=== PATIENT | male | born 1985 | race Caucasian/White ===

== ENCOUNTER 2024-02-08 08:26 | Outpatient (CLI) | payer OTHER, SELFPAY ==
--- NOTE | 2024-02-08 09:45 | W.ANESCHARGE ---
Anesthesia Charges Start Date/Time Anesthesia Start Date: 02/08/24 Anesthesia Start Time: 09:22 Stop Date/Time Anesthesia Stop Date: 02/08/24 Anesthesia Stop Time: 09:42
--- NOTE | 2024-02-08 10:08 | W.ANESCHARGE ---
Anesthesia Charges Start Date/Time Anesthesia Start Date: 02/08/24 Anesthesia Start Time: 09:22 Stop Date/Time Anesthesia Stop Date: 02/08/24 Anesthesia Stop Time: 09:42
== END 2024-02-08 08:27 | disposition home or self-care (01) ==
LOC: OP CLINIC 08:26
PROVIDERS: PCP Nurse Practitioner Family; Visit Provider Surgery
DX: R10.13 Epigastric pain (principal); K21.9 Gastro-esophageal reflux disease without esophagitis; K22.10 Ulcer of esophagus without bleeding; K44.9 Diaphragmatic hernia without obstruction or gangrene
CPT/HCPCS: 00731; 43239; 88305; J2704; J3010

== ENCOUNTER 2024-05-30 12:33 | Outpatient (CLI) | payer OTHER, SELFPAY | END 2024-05-30 12:34 | disposition home or self-care (01) | PROVIDERS: PCP Nurse Practitioner Family; Visit Provider Nurse Practitioner Family | DX: E78.00 Pure hypercholesterolemia, unspecified (principal) | CPT/HCPCS: 80061; 80076; 83695 ==

== ENCOUNTER 2024-08-04 08:08 | Outpatient (CLI) | payer OTHER, SELFPAY ==
--- NOTE | 2024-08-04 08:15 | CRLHL7_ITS ---
For Patients: As a result of the Cures Act, medical imaging exams and procedure reports are released immediately into your electronic medical record. You may view this report before your referring provider. If you have questions, please contact your health care provider. Indication: Cervicalgia. Technique: Multiplanar multisequence noncontrast MR images of the cervical spine. Comparison: Cervical spine radiographs 07/29/2024. Findings: Straightening of the cervical lordosis. No acute fracture or spondylolisthesis. No T1 hypointense lesions or marrow edema. The cervical cord is normal in signal intensity. C2-3: No spinal canal or neural foraminal narrowing. C3-4: No spinal canal or neural foraminal narrowing. C4-5: Shallow posterior disc osteophyte complex. Uncinate spurring. Mild spinal canal narrowing. Mild right without left neural foraminal narrowing. C5-6: Shallow posterior disc osteophyte complex. Uncinate spurring. Minimal spinal canal narrowing. No neural foraminal narrowing. C6-7: Postsurgical changes of disc arthroplasty. No spinal canal or neural foraminal narrowing. C7-T1: No spinal canal or neural foraminal narrowing. Impression: 1. Mild cervical spondylosis without spinal canal or neural foraminal stenosis. 2. Postsurgical changes of disc arthroplasty at C6-7. Dictated by Trevor Fonseca MD @ 08/06/2024 7:50:25 AM (Electronically Signed)
== END 2024-08-04 08:09 | disposition home or self-care (01) ==
LOC: MRI 08:09
PROVIDERS: PCP Nurse Practitioner Family; Visit Provider Nurse Practitioner Family
DX: M54.2 Cervicalgia (principal); M47.892 Other spondylosis, cervical region
CPT/HCPCS: 72141

== ENCOUNTER 2024-10-27 14:50 | Outpatient (CLI) | payer OTHER, SELFPAY ==
--- OUTSIDE RECORDS SUMMARY | 2024-10-28 00:43 | XMS_ITS | Patient Health Record ---
Author Organization [facility] Address [address] [place] [address] Care Team Providers Care Flumer Name Role Phone Thang Abbott Primary Care Provider CRISTHIAN Moon Unavailable [phone] Reason For Referral No Information Medications Medication SIG (Take, Route, Frequency, Duration) Notes Start Date End Date Status Mobic 15 MG 1 tablet Orally Once a day; Duration: 30 day(s) 02/03/2015 Active Problems Problem Type SNOMED Code ICD Code Onset Dates Problem Status W/U Status Risk Notes Problem Injury of superior glenoid labrum of shoulder joint (675473069) Superior glenoid labrum lesion of left shoulder, initial encounter (S43.432A) Active confirmed Problem SLAP lesion of left shoulder (129269483881234 08) SLAP lesion of left shoulder (S43.432A) Active confirmed Problem Instability of left shoulder joint (050488010) 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
--- OUTSIDE RECORDS SUMMARY | 2024-10-28 00:44 | XMS_ITS | Clinical Summary ---
Author Organization [facility] Address [address] [place] [address] Care Team Providers Care Offbearer Sewer Pipe Name Role Phone Merlyn Portillo NP Primary Care Provider [phone] Allergies No known active allergies Medications omeprazole (PRILOSEC) 40 mg Delayed-Release capsule Take 1 Capsule by mouth once daily. 2 Active famotidine (PEPCID) 20 mg tablet Take 1 Tablet (20 mg) by mouth 2 times daily if needed. 0 3 Active ondansetron (ZOFRAN ODT) 8 mg disintegrating tabletIndications:N ephrolithiasis Place 1 Tablet (8 mg) on the tongue every 8 hours if needed for Nausea/Vomit ing. 10 Tablet 3 Active oxyCODONE (ROXICODONE) 5 mg immediate release tabletIndications:N ephrolithiasis Take 1 Tablet (5 mg) by mouth every 6 hours if needed for Pain. 10 Tablet 3 Active ibuprofen (ADVIL; MOTRIN) 600 mg tabletIndications:N ephrolithiasis Take 1 Tablet (600 mg) by mouth every 6 hours if needed for Pain. Maximum of 3200 mg in 24 hours. 30 Tablet 3 Active tamsulosin (FLOMAX) 0.4 mg capsuleIndications: Nephrolithiasis Take 1 Capsule (0.4 mg) by mouth once daily after a meal. 7 Capsule 3 Active atorvastatin 20 mg tablet Take 20 mg by mouth at bedtime. 5 Active Active Problems No known active problems Encounters Date Type Department Care Team Description 09/07/2024 Lab Requisition [facility] [phone] Gela Macias MD 08/04/2024 Travel from Last 3 Months Social History Tobacco Use Types Packs/Day Years Used Date Smoking Tobacco: Never Smokeless Tobacco: Never Tobacco Cessation:Counseling Given: Not Answered Alcohol Use Standard Drinks/Week Comments Yes 1 (1 standard drink = 0.6 oz pur e alcohol) Interpersonal Safety Answer Date Record ed Are you being hit, kicked, p ushed or yelled at (see row info)? 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 Gender Identity Not on file Sexual Orientation Not on file Obstetrics History Last Filed Vital Signs Vital Sign Reading Time Taken Comments Blood Pressure 124/98 07/22/2024 11:58 AM CDT Pulse 78 07/22/2024 11:58 AM CDT Temperature 36.3 C (97.3 F) 07/22/2024 11:58 AM CDT Respiratory Rate 18 07/22/2024 11:58 AM CDT Oxygen Saturation 98% 07/22/2024 11:58 AM CDT Inhaled Oxygen Concentration - - Weight 104.3 kg (230 lb) 07/22/2024 11:58 AM CDT Height 182.9 cm (6') 04/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 [address] [place] [address] Health Maintenance Due Date Last Done Comments Tdap 1997 Depression screening for age 12+ 1998 HIV for age 15-65 2001 Hepatitis C screening for ag e 18-79 2004 Hepatitis B series for 19+ ( 1 of 3 - 19+ 3-dose series) 2005 Tetanus booster 2006 Lipids for age 35-44 2021 BMI (ht and wt on same day) for age 18+ 06/24/2023 06/24/2022 COVID-19 vaccine series ( - 2023- season) 2024 09/06/2020, 08/16/2020 Influenza Vaccine (Season Ended) 2025 Pneumococcal series for age 6-49 Aged Out No longer eligible b ased on patient's age to complete this topic Procedures Procedure Name Priority Date/Time Associated Diagnosis Comments PATH TISSUE EXAM Routine 09/06/2024 8:55 AM CDT LAB TRACKING EVENT Routine 09/06/2024 8: 30 AM CDT from Last 3 Months Results * PATH TISSUE EXAM (09/06/2024 8:55 AM CDT) Case Report Pathology Report Case: [id number] Authorizing Provider: Gela Macias MD Collected: 09/06/2024 0855 Ordering Location: [facility] Received: 09/07/2024 1003 Pathologist: Armando Miranad MD Specimens: A) - Right Vas Deferens B) - Left Vas Deferens 09/08/2024 1:51 PM CDT [facility] Final Diagnosis A) VAS, RIGHT, VASECTOMY: 1. Portion of vas deferens, complete cross section 2. Negative for malignancy B) VAS, LEFT, VASECTOMY: 1. Portion of vas deferens, complete cross section 2. Negative for malignancy 09/08/2024 1:51 PM CDT [facility] LABORATORY at 1351 CDT Clinical Information sterilization 09/08/2024 1:51 PM CDT [facility] Gross Description A) Received in formalin, labeled with the patient's name and R vas deferens, is a 1.5 cm in length by 0.4 cm in diameter cylindrical segment of vas deferens. The specimen is entirely submitted in one cassette for sectioning by histology. B) Received in formalin, labeled with the patient's name and L vas deferens, is a 2.1 cm in length by 0.4 cm in diameter cylindrical segment of vas deferens. The specimen is entirely submitted in one cassette for sectioning by histology. JKG 09/07/2024 09/08/2024 1:51 PM CDT [facility]- ENTRAL LABORATORY Microscopic Description The final diagnosis is based on microscopic examination of appropriate sections of all specimens. Multiple levels are examined. 09/08/2024 1:51 PM CDT [facility]- ENTRAL LABORATORY Additional Information Interpreted at [facility] - [address] [place] [address] [facility] [address] [address] 09/08/2024 1:51 PM CDT [facility] EN[facility] Other (Right Vas Deferens) 09/06/2024 8:55 AM CDT 09/07/2024 10:03 AM CDT Specimen (specimen) (Left Vas Deferens) 09/06/2024 9:10 AM CDT 09/07/2024 10:03 AM CDT Gela Macias MD PATHOLOGY/CYTOLOGY Final Result Performing Organization Address [facility] Co de Phone Number [facility] [address] [place] [address], * LAB TRACKING EVENT (09/06/2024 8:30 AM CDT) Other (Other) Client Collect / Unknown 09/06/2024 8:30 AM CDT 09/07/2024 7:13 AM CDT Gela Macias MD LAB BILL ONLY Final Re sult Performing Organization Address [facility] Co de Phone Number [facility] [address] [place] [address], from Last 3 Months Insurance JEN SANDOVAL [id number] [employer] [facility] Care Teams Offbearer Sewer Pipe Relationship Specialty Start Date End Date Merlyn Portillo NP [address] [facility] [place] [address] PCP - General Emergency Medicine 04/22/24
== END 2024-10-27 14:51 | disposition home or self-care (01) ==
PROVIDERS: PCP Nurse Practitioner Family; Visit Provider Nurse Practitioner Family
DX: E78.00 Pure hypercholesterolemia, unspecified (principal)
CPT/HCPCS: 80061